=== PATIENT | male | born 1950 | race Caucasian/White ===

== ENCOUNTER 2016-09-21 06:57 | Inpatient (IN) | payer MEDICARE, OTHER ==
[2016-09-18 13:42] LABS: BASOPHILS 0.5 %; BASOPHILS ABSOLUTE 0.04 10/3/uL (0.0-0.16); EOSINOPHILS 1.6 %; EOSINOPHILS ABSOLUTE 0.13 10/3/uL (0.0-0.53); HEMATOCRIT 44.7 % (40.0-51.0); HEMOGLOBIN 15.3 g/dL (13.6-17.8); IMMATURE GRANULOCYTES 0.3 %; IMMATURE GRANULOCYTES ABSOLUTE 0.02 10/3/uL (0.0-0.11); LYMPHOCYTES 17.6 %; MEAN CORPUS HGB CONC 34.2 g/dL (32.0-36.0); MEAN CORPUSCULAR VOLUME 90.5 fL (80-100); MEAN PLATELET VOLUME 10.3 fL (9.2-13.0); MONOCYTES 9.8 %; MONOCYTES ABSOLUTE 0.78 10/3/uL (0.21-1.20); NEUTROPHILS 70.2 %; NEUTROPHILS ABSOLUTE 5.58 10/3/uL (2.02-8.40); PLATELET COUNT 168 10/3/uL (150-400); RBC DISTRIBUTION WIDTH 12.6 % (12.0-16.0); RED CELL COUNT 4.94 10/6/uL (4.7-6.1)
[2016-09-18 13:47] LABS: MANUAL DIFF NO %
[2016-09-18 13:56] LABS: BUN (BLOOD UREA NITROGEN) 11 MG/DL (6-23); CALCIUM, SERUM 8.7 MG/DL (8.5-10.4); CHLORIDE, SERUM 107 MMOL/L (96-112); CO2 (CARBON DIOXIDE) 28 MMOL/L (24-34); CREATININE 0.81 MG/DL (0.70-1.30); GFR AFRICAN AMERICAN 107 ML/MIN (>=60); GFR NON AFRICAN AMERICAN 93 ML/MIN (>=60); GLUCOSE, SERUM 96 MG/DL (60-99); PROSTATIC SPECIFIC AG 9.92 NG/ML (0.0-4.5); SODIUM, SERUM 144 MMOL/L (135-148)
--- NOTE | ~2016-09-21 | OP ---
Record Of Operation [facility] [address] [place]. [address] NAME: EDITH SERNA : 50 STATUS : ADM IN PAT#: [id number] AGE: 66 ADM/REG DATE : 09/21/16 MR#: [id number] REPORT SERV DATE: 09/21/16 DICTATED BY: KIET KELLOGG DATE: 09/21/16 REPORT STATUS : Draft TRANSCRIBED BY: MODL DATE: 09/21/16 DATE OF PROCEDURE: 09/21/2016 PREOPERATIVE DIAGNOSES: 1. Benign prostatic hyperplasia with obstruction. 2. Intermittent urinary retention. POSTOPERATIVE DIAGNOSES: 1. Benign prostatic hyperplasia with obstruction. 2. Intermittent urinary retention. PROCEDURE PERFORMED: Transurethral resection of the prostate. SURGEON: Kiet Kellogg M.D. ANESTHESIA: General. COMPLICATIONS: None. DRAINS: 24-American 3-Alvares catheter. SPECIMEN: Prostate chips. BLOOD LOSS: 250 mL. INDICATION: Mr. Serna is a 66-year-old with chronic problems of BPH. He has intermittent problems with overt urinary retention despite Flomax. PSA has been elevated. He has had negative biopsy and a reassuring MRI. His prostate measures more than 100 g on that MRI. He opts for TURP. The alternative of simple open prostatectomy was also discussed. TECHNIQUE: Informed consent was obtained. He was brought to the operating room. General anesthesia was administered. Levaquin was administered preoperatively. The lower abdomen, penis, and scrotum were prepped and draped in the lithotomy position. I calibrated the urethra to 28-American dilated to 30-American with Gamal sounds. Rigid cystoscopy was performed. There was bilobar BPH with the left lobe much larger than the right. No significant median lobe. The bladder was inspected. There was no tumor or stone. Moderate trabeculation was present. UOs were entirely obscured by BPH. After the cystoscope was removed, I placed a 28-American resectoscope. Glycine was used for irrigation. Transurethral surgical resection of the prostate was performed. Resection time was approximately 1 hour and 40 minutes. First, I resected the midline tissue from the bladder neck down to the verumontanum. Next, the larger left lateral lobe was resected from the bladder neck down to just beyond the verumontanum. Finally, the right lobe was resected. A minimal amount of anterior tissue was present, it could not be resected due to angulation. Chips were evacuated with an Ellik. I fulgurated the bed of resection with rollerball for hemostasis. Both UOs were visible and effluxing clear. No chip was seen to Record Of Operation [address] [place]. [address] NAME: EDITH SERNA : 50 STATUS : ADM IN PAT#: [id number] AGE: 66 ADM/REG DATE : 09/21/16 MR#: [id number] REPORT SERV DATE: 09/21/16 DICTATED BY: KIET KELLOGG DATE: 09/21/16 REPORT STATUS : Draft TRANSCRIBED BY: MODCody DATE: 09/21/16 remain in the bladder, prostatic urethra, or urethra. I removed the resectoscope and placed a 24-American 3-way Alvares catheter with 40 mL in the balloon. The catheter irrigated well. It was placed on traction and CBI initiated. He tolerated the procedure and was taken to the recovery room in satisfactory condition. POSTOPERATIVE PLAN: For 48 hours of CBI and a trial of void in one week or so. If he fails a trial of void, then a second bout of resection would be reasonable. GRETTA/CARLO Kiet Kellogg M.D. / [id number] CC: Kiet Kellogg M.D.
--- NOTE | ~2016-09-21 | DS ---
Discharge Summary [facility] [address] [place]. [address] NAME: EDITH VALLADARES : 50 STATUS : DIS IN PAT#: [id number] AGE: 66 ADM/REG DATE : 09/21/16 MR#: [id number] REPORT SERV DATE: 10/04/16 DICTATED BY: KIET KELLOGG DATE: 10/03/16 REPORT STATUS : Draft TRANSCRIBED BY: MODCody DATE: 10/03/16 Data Collection from hospitalization DISCHARGE DIAGNOSES: 1. Benign prostatic hyperplasia with obstruction. 2. Intermittent urinary retention. 3. Hypertension. 4. Benign prostatic hypertrophy. 5. Coronary artery disease. CONSULTATIONS: None. PROCEDURES PERFORMED: Transurethral resection of the prostate on 09/21/2016. PATHOLOGY: Prostatic tissue (TUR 82 g) - glandular and stromal hyperplasia. MEDICATIONS: Aspirin 81 mg daily, vitamin D 1000 units daily, Cipro 500 mg every 24 hours, Catapres 0.1 mg as needed, Colace 100 mg daily, Lasix 20 mg daily, [place] 5/325 one to two tablets every six hours as needed, K-Tab 10 mEq daily, Phenergan 25 mg every six hours as needed, Flomax 0.4 mg every day at bedtime, and Diovan one tablet at bedtime. CONDITION AT DISCHARGE: Stable. DISPOSITION: The patient was discharged home to be followed by home health care on a regular diet with activities as instructed. He would follow up with me on 10/15/2016. HOSPITAL COURSE: This is a 66-year-old man who has had problems with benign prostatic hypertrophy for years. He had intermittently had overt urinary retention. He reported having negative prostate needle biopsy because of his elevated PSA in the past. His more recently elevated PSA was evaluated with an MRI, which was reassuring. His prostate was greater than 100 g. He had recently been in retention and strained to void all the time. He continued on tamsulosin. He presented for TURP. He understood that if the prostate was larger, then it was typically treat with TURP. He did not want to undergo simple open prostatectomy. He understood that a second episode of resection may be necessary given the size of his prostate. Recent MRI had revealed that his prostate measured 169 g. He was admitted to the hospital for further evaluation and treatment. Upon admission, plans were made to proceed with cystoscopy and transurethral resection of the prostate. He was taken to the operating room where he underwent the above-mentioned procedure. He tolerated this well, and there were no complications. On postop day #1, his urine was light pink. His abdomen was soft. Dressings were clean. We were weaning continuous bladder irrigation. The Alvares catheter was still in place. On postop day #2, he felt bloated. He has not had a bowel movement. His lungs were clear. Urine was still red. A laxative was provided. Discharge planning was performed. On 09/24/2016, he did have a bowel movement. He did complain of having bladder spasms. His urine was pink/clear. Discharge instructions were given. Due to his improved and stable condition, he was discharged home to be followed by home health care with the above-stated instructions. Discharge Summary [facility] [id number] [facility]. [address] NAME: EDITH VALLADARES : 50 STATUS : DIS IN PAT#: [id number] AGE: 66 ADM/REG DATE : 09/21/16 MR#: [id number] REPORT SERV DATE: 10/04/16 DICTATED BY: KIET KELLOGG DATE: 10/03/16 REPORT STATUS : Draft TRANSCRIBED BY: CARLO DATE: 10/03/16 Information collected by: Nini Jones I submit the above information as my discharge summary. ALLISON/CARLO Kiet Kellogg M.D. / [id number] CC: Dell Antonio M.D.
--- NOTE | ~2016-09-21 | HP ---
History And Physical [facility] [place] [address] [place]. [address] NAME: EDITH VALLADARES : 50 STATUS : ADM IN [facility]#: [id number] AGE: 66 ADM/REG DATE : 09/21/16 MR#: [id number] REPORT SERV DATE: 09/21/16 DICTATED BY: KIET KELLOGG DATE: 09/21/16 REPORT STATUS : Draft TRANSCRIBED BY: MODL DATE: 09/21/16 DATE OF ADMISSION: 09/21/2016 CHIEF COMPLAINT: BPH with obstruction. HISTORY OF PRESENT ILLNESS: Mr. Valladares is a 66-year-old who has had problems with BPH for years. He has intermittently had overt urinary retention. He reports having a negative prostate needle biopsy because of his elevated PSA in the past. His more recently elevated PSA was evaluated with an MRI which was reassuring. His prostate was greater than 100 g. He has recently been in retention and strains to void all the time. He continues on tamsulosin. He presents for TURP. He understands that if prostate is larger, then it is typically treated with TURP. He does not want a simple open prostatectomy. He does understand that a second episode of resection may be necessary given the size of his prostate. His prostate measured 169 g on MRI recently. PAST MEDICAL HISTORY: Hypertension, coronary artery disease, and BPH. MEDICATIONS: Aspirin that has been held for one week, vitamin D, clonidine, Colace, Lasix, potassium, Flomax, and valsartan/HCTZ. ALLERGIES: ATORVASTATIN AND SHELLFISH. SOCIAL HISTORY: , nondrinker, nonsmoker. REVIEW OF SYSTEMS: Positive for intermittent straining to void as well as intermittent hematuria. No fevers, chills, nausea, vomiting, or dysuria. No chest pain. No shortness of breath. He has good exercise tolerance. FAMILY HISTORY: No family history of prostate cancer. PHYSICAL EXAMINATION: VITAL SIGNS: Blood pressure 168/83, pulse 70, respirations 20, temperature 97.9. GENERAL: Pleasant 66-year-old, anxious, but in no acute distress. HEENT: Sclerae anicteric. LUNGS: Clear. HEART: Regular rhythm. CHEST: Clear anteriorly. ABDOMEN: Soft, nontender, nondistended. No palpable mass. No rebound or guarding. No right or left CVA tenderness. /RECTAL: Bladder is full, but nontender. Testes normally descended bilaterally. No hernia. Digital rectal exam shows mild anal stenosis. There is a 100+ g prostate, smooth, palpably benign. LABORATORY DATA: Hematocrit 44, platelets normal. Creatinine 0.8. PSA 9.92. History And Physical [address] [address] NAME: EDITH VALLADARES : 50 STATUS : ADM IN PAT#: [id number] AGE: 66 ADM/REG DATE : 09/21/16 MR#: [id number] REPORT SERV DATE: 09/21/16 DICTATED BY: KIET KELLOGG DATE: 09/21/16 REPORT STATUS : Draft TRANSCRIBED BY: CARLO DATE: 09/21/16 IMPRESSION: 1. Benign prostatic hypertrophy with obstruction. 2. Elevated PSA, stable. PLAN: Proceed with cystoscopy, transurethral resection of the prostate. He understands the risks of bleeding, infection, persistent retention, transient urge incontinence postop, and urethral stricture. He also understands if full resection can be performed, then a staged procedure with repeat resection in one to two weeks would be necessary. The alternative of simple open prostatectomy has been discussed. He prefers an endoscopic treatment. [facility]/CARLO Kiet Kellogg M.D. / [id number] CC: Kiet Kellogg M.D.
[~2016-09-21 06:57] MED LIST: ASAB PO; CAT1 PO; DIOVAN HC1 PO; DSS PO; FLOMAX4 PO; K-TABS10 MEQ PO; L20 PO; VITAMIN D1000 UNI1 PO
[2016-09-21 11:51] LABS: HEMATOCRIT 44.2 % (40.0-51.0); HEMOGLOBIN 14.8 g/dL (13.6-17.8)
[2016-09-22 05:59] LABS: HEMOGLOBIN 13.4 g/dL (13.6-17.8)
[2016-09-22 06:01] LABS: HEMATOCRIT 39.6 % (40.0-51.0)
[2016-09-24] MEDS ORDERED: PR25 PO (11:51)
[2016-09-24] MEDS ORDERED: NORCO1 TA1 PO (11:52)
[2016-09-24] MEDS ORDERED: CIP5 PO (11:52)
== END 2016-09-24 14:33 | disposition home health service (06) | DRG 713 ==
LOC: SDC/OF 06:57 → PACU 11:22 → 4SO 13:10
PROVIDERS: Urology
PROC: 0VB08ZZ Excision of Prostate, Via Natural or Artificial Opening Endoscopic (ICD-10-PCS; principal; 2016-09-21 09:00)
DX: N40.1 Benign prostatic hyperplasia with lower urinary tract symptoms (principal); N13.8 Other obstructive and reflux uropathy; I10 Essential (primary) hypertension; R33.8 Other retention of urine; R39.16 Straining to void; I25.10 Atherosclerotic heart disease of native coronary artery without angina pectoris; Z79.82 Long term (current) use of aspirin; Z88.8 Allergy status to other drugs, medicaments and biological substances; Z91.013 Allergy to seafood
CPT/HCPCS: 36415; 80048; 84153; 84295; 85014; 85018; 85025; 86850; 86900; 86901; 88305; 93005; A9270-GY; J2250; J2270; J2405; J2710; J3010